=== PATIENT | male | born 1940 | race Caucasian/White ===

== ENCOUNTER 2018-08-20 10:36 | Emergency (ER) | payer MEDICARE, OTHER, SELFPAY ==
[2018-08-20 10:38] VITALS: BP 154/74; PULSE 116; RESP 28; TEMP 36.8; O2SAT 98; BMI 21.9
[2018-08-20 11:04] LABS: Absolute Lymphocyte Count 1.11 X10^3/ul (0.83-4.51); Basophil# 0.05 X10^3/uL; Basophil% 0.5 % (0-1); Eosinophil# 0.45 X10^3/uL; Eosinophils% 4.2 % (0-5); Hematocrit 35.9 % (40-54); Hemoglobin 10.9 g/dl (13.0-16.5); Lymphocyte # 1.11 X10^3/ul (4.0); Lymphocyte % 10.3 % (19-41); Mean Corp Hgb Conc 30.4 g/gl (32-36); Mean Corpuscular Hgb 25.1 pg (27.0-32.0); Mean Corpuscular Volume 82.5 fL (80-94); Mean Platelet Vol. 10.3 fl (6.2-12.0); Monocyte% 10.2 % (0-10); Neutrophil # 8.03 X10^3/uL (2.7-7.7); Neutrophil % 74.5 % (47-70); Platelet Count 312 K/mm3 (150-450); RBC Distribution Width CV 14.8 % (11.6-14.6); Red Blood Count 4.35 M/mm3 (4.6-6.2); White Blood Count 10.8 K/mm3 (4.4-11.0)
[2018-08-20 11:05] LABS: POSITIVE COUNT NO; POSITIVE DIFFERENTIAL NO; POSITIVE MORPHOLOGY NO
[2018-08-20 11:16] LABS: Anion Gap 4 (5-15); BUN 10 mg/dL (7-18); Calcium,Total 8.4 mg/dL (8.5-10.1); Chloride 105 mmol/L (98-107); Creatinine, Serum 0.83 mg/dL (0.70-1.30); EST Glomerular Filtration Rate 95 mL/min (>60); Est Glom Filt Rate - Afr Amer 116 mL/min (>60); Estimated Creatinine Clearance 69.18 ml/min; Glucose 159 mg/dL (74-106); Potassium 3.5 mmol/L (3.5-5.1); Sodium Level 142 mmol/L (136-145)
[2018-08-20 11:38] LABS: Bacteria 0 SEEN /hpf (None Seen); Mucous, Urine 0 SEEN /hpf (<or=2+); Squamous Epithelial Cells - UA 0 SEEN /hpf (0-5); White Blood Cells 0 SEEN /hpf (0-5)
[2018-08-20 11:39] LABS: Color, Urine Red (Yellow); Glucose, Dipstick Normal (Normal); Ketone-Dipstick Negative (Negative); Leukocyte Esterase-Dipstick Negative /ul (Negative); Nitrite-Dipstick Negative (Negative); Occult Blood-Urine 250 /ul (Negative); Protein-Dipstick 500 mg/dl (Negative); Specific Gravity, Urine 1.015 (1.002-1.030); Urine Bilirubin Dipstick Negative (Negative); Urine Clarity Turbid (Clear); Urine Urobilinogen Normal (Normal)
[2018-08-20 11:46] LABS: Red Blood Cells-Urine > 100 SEEN /hpf (0-5)
[2018-08-20] MEDS: Lidocaine Jelly 2% 20 ML Syringe (URO-JET) 20 APPLIC TOPICAL (11:47)
--- NOTE | 2018-08-20 12:21 | ED.DCSUM_ITS ---
- ER Visit Summary Date of Service: 08/20/18 Chief Complaint: Dysuria History of Present Illness: The patient is a 77 M presenting for evaluation secondary to dysuria. Patient reports that over the course of the last week he has had progressively worsening dysuria frequency and has actually started to develop some hematuria. Patient states that today now he is actually having some difficulty with his urinary stream. He reports that he has urgency associated with this. Patient is on Eliquis secondary to a history of atrial fibrillation. He states that that is the only medication that he took this morning and did not take any of his antihypertensives or antiarrhythmics. He denies any history of GI bleeding. He denies any prior history of urinary bleeding. Physical Examination: Thin appearing elderly male no acute distress. Vital signs notable for heart rate of 116 98% on 4 L which is the patient's baseline. No evidence of conjunctival pallor, moist mucous membranes. Heart was irregularly and mildly tachycardic with distant heart sounds. There was mild tachypnea but actually clear lung sounds and no respiratory distress. Abdomen was soft and nontender. No CVA tenderness to percussion. Remainder the physical otherwise unremarkable. Test Results: CBC shows mild anemia at 10.9 with normal platelet count. Chemistry is within normal limits, urinalysis shows greater than 100 red blood cells no white cells or bacteria Emergency Department Course and Treatment: Patient presented for evaluation secondary to dysuria and hematuria. A Cunningham catheter was placed, patient had a moderate amount of return but the return was bloody. I do believe that maintenance of the Cunningham catheter is indicated at this point. Patient does not have evidence of urinary infection causing this, this likely is a side effect of his blood thinner. He has no evidence of acute kidney injury. Patient was somewhat tachycardic in the emergency department with heart rates about 110 but he did not take his beta-blockers or his antiarrhythmics today and I believe that this likely is the cause. I do not believe that further workup is indicated. Patient will be discharged with a leg bag and follow-up with urology . Disposition: Discharge Impression: 1. Hematuria, history of anticoagulation This note was generated with [employer] dictation software. It may contain incorrect words, spelling, and punctuation that were not noted in review of the chart prior to signing ED Disposition - Plan for ED Patient: Disposition: Home or Assisted Living Chief Complaint: Complaint Diagnosis: Hematuria Instructions: ED Hematuria, ED Catheter Care Cunningham Referrals: Geogre Tomlinson MD [STAFF PHYSICIAN] - As soon as possible
[2018-08-20 12:51] VITALS: BP 164/81; PULSE 52; RESP 26; O2SAT 99
--- NOTE | 2018-08-20 12:52 | ED.RN ---
Pt and spouse educated on home care of urinary catheter. Leg bag placed, pt educated on operation of leg bag. Denies need to take home larger catheter bag. Follow up instructions reviewed. Pt and spouse deny questions or further needs. Spouse states she will assist pt in getting dressed. Escorted out to car via wheelchair by this RN.
== END 2018-08-20 13:04 | disposition home or self-care (01) ==
PROVIDERS: Emergency Provider Emergency Medicine; Family Provider Family Medicine; PCP Family Medicine
DX: R31.9 Hematuria, unspecified (principal); I48.91 Unspecified atrial fibrillation; I25.10 Atherosclerotic heart disease of native coronary artery without angina pectoris; J44.9 Chronic obstructive pulmonary disease, unspecified; I10 Essential (primary) hypertension; Z79.02 Long term (current) use of antithrombotics/antiplatelets; Z79.51 Long term (current) use of inhaled steroids; Z79.82 Long term (current) use of aspirin; Z79.899 Other long term (current) drug therapy
CPT/HCPCS: 51702; 80048; 81001; 85025; 99285; A4216

== ENCOUNTER 2018-09-01 08:43 | Day surgery (SDC) | payer MEDICARE, OTHER, SELFPAY ==
[2018-08-24 14:19] VITALS: BP 130/58; PULSE 74; RESP 20; TEMP 36.6; O2SAT 97; BMI 22.1
--- NOTE | 2018-08-24 15:59 | SDCEKG_ITS ---
Test Reason : Blood Pressure : / mmHG Vent. Rate : 106 BPM Atrial Rate : 106 BPM P-R Int : 150 ms QRS Dur : 084 ms QT Int : 354 ms P-R-T Axes : 084 049 057 degrees QTc Int : 470 ms Sinus tachycardia with occasional Premature ventricular complexes and Fusion complexes Low voltage QRS (limb leads) Reconfirmed by FAISAL SHEA, NAVNEET ([id number]), editor in chief CONSUELO DOHERTY ([id number]) on 08/26/2018 3:45:17 PM Referred By: George Tomlinson Confirmed By:NAVNEET MALONE MD
[2018-09-01] VITALS (11 sets, daily range): BP systolic 85–164; BP diastolic 52–79; PULSE 61–100; RESP 16–18; TEMP 36–37.1; O2SAT 66–100; BMI 22.1
--- NOTE | 2018-09-01 10:25 | BLB_PTH ---
PATIENT: KINGSTON ROBBINS LOC: [facility] [place] U#:[id number] AGE/SX: 77/M ROOM: RE09/01/[address]: Dr. George Tomlinson MD : [id number] BED: DIS: 09/02/2018 SPEC #: [id number] RECD: 09/01/18 12:15 STATUS: MIKAYLA REAmber #: [id number] AMELIA: 09/01/18 10:[address]: George Tomlinson DEPT: SURGICAL PATHOLOGY RECD BY: Alissa Han ENTERED: 09/01/18 12:42 SP TYPE: TURB OTHR DR: Dr. Kevin Harris MD Tissues: A - Urethra, NOS B - Urinary bladder, NOS Procedures: Surgery Specimen Level V HEADER OPERATION: Cysto, transurethral resection bladder, [facility] PRE-OP DIAGNOSIS: Gross hematuria, neoplasm of uncertain behavior TISSUE SUBMITTED: A - Prostatic urethra, B - Bladder tumor MICROSCOPIC DIAGNOSIS A. Prostatic urethra, TUR: Urothelial carcinoma in situ. Prostatic tissue, negative for carcinoma. B. Bladder tumor, TUR: High-grade invasive urothelial carcinoma. See cancer summary. HILARIA:jaya 09/02/18 BLADDER CANCER (TUR) SUMMARY: (Including specimen A & B) Procedure - TURBT and prostatic urethra, TUR Histologic type - urothelial (transitional cell) carcinoma Associated epithelial lesions - none identified Histologic grade - urothelial carcinoma (WHO 2004/ISUP) - high grade (3/3) Tumor configuration - papillary, invasive and in situ (flat) Adequacy of material for determining muscularis propria invasion - muscularis propria (detrusor muscle) is present and is involved by the tumor. Lymph-Vascular invasion - not identified Microscopic extent of tumor - tumor invades muscularis propria (detrusor muscle) (specimen B) Urothelial carcinoma in situ involve prostatic urethra in prostatic chip (specimen A). Additional pathologic findings - chronic inflammation. -Calcified fragments consistent with stone. The above summary is in compliance with [employer] (CAP) Cancer Protocols Checklist and [place] Joint Committee on Cancer (AJCC), Staging Manual, 8th Ed. COMMENT Case has been reviewed in consultation with Dr. Bautista who concurs with the above diagnosis. IDC:AM MICROSCOPIC DESCRIPTION Slides are reviewed. GROSS DESCRIPTION A - Received in fixative is one container labeled with the patient's name and designated prostate urethra. The specimen consists of multiple fragments of tamez-brown, indurated tissue that in aggregate measure 2 x 1.5 x 0.3 cm. The entire specimen is submitted in one cassette. B - Received in fixative is one container labeled with the patient's name and designated bladder tumor. The specimen consists of multiple irregular fragments of light tamez soft tissue that in aggregate measure 5 x 3 x 0.3 cm. The specimen is totally submitted in two cassettes. / SJ:rg 09/01/18 TC:0 CPT: 82796 x2
[2018-09-01] MEDS: Cefazolin 2 GM in 0.9% Normal Saline 100 ML IV (10:47)
--- NOTE | 2018-09-01 11:55 | OP.PCM_ITS ---
Report of Operation Date of Procedure: 09/01/18 Pre-Operative Diagnosis: Bladder stone large and bladder cancer large Post-Operative Diagnosis: Same Surgery/Procedure Performed:: Cystoscopy and cystolitholapaxy removal of large bladder stone, transurethral resection of the prostatic and transurethral resection of a large bladder tumors, multiple tumors throughout the bladder Description of Surgical Findings:: 77-year-old male taken back to the operating room after smooth induction of spinal anesthesia he was then placed in dorsal lithotomy position will carefully he had SCDs on for DVT prophylaxis, he received IV antibiotics Ancef 1 g IV preoperatively, the penis and testicles were prepped and draped in usual sterile fashion, first went into the bladder with a noncontinuous flow 24 resectoscope the entire length the urethra is normal identify the sphincter I then identified the verumontanum I then within the prostatic channel there. To be low papillary tumors along the prostatic channel, we then switched over to the resectoscope 26 [place] continuous for flow I then used the resectoscope to resect the prostatic prostate and the prostatic urethra all the way from the bladder neck back down the Tia this is to get the prostate strip out and also the papillary tumors within the prostate so after resecting the prostate this took about 15 minutes and I cauterized this to obtain hemostasis then went back into the bladder and description of the bladder as the left and right ureteral orifice were uninvolved with tumor but he had papillary sessile tumors throughout the bladder multiple locations overlapping sites posterior wall lateral wall left and right dome anterior and posterior pretty much the entire mucosa of the bladder was occupied with papillary tumors started resecting in the lateral wall work my way to the posterior wall and then worked my way to the left lateral wall of the right lateral wall I did get 1 obturator reflex in the right lateral wall that caused a bigger divot in the bladder mucosa but no perforation I then cauterized and the posterior wall and the dome of the bladder extensively 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 and multiple papillary tumors throughout the bladder these were all resected unclear if he had invasive disease I suspect he has T1 disease after resecting multiple tumors throughout the bladder and then cauterizing I switched over to the resectoscope again and then use suction to suction out the area in the dome of the bladder to cauterize the dome he also then had a large stone this was broken up with the pieces and then the stone was removed from the bladder at the at the end of the case all the bladder tumor fragments were removed the prostate channel tumors were removed a separate specimen to the 2 specimen one was the prostatic urethra and prostate and the other one was a bladder tumor after complete resection of the bladder tumor in the prostate urethra urethra good hemostasis was obtained we played placed a 40 cc of mitomycin-C cc into the bladder for post chemo treatment catheter was left in place we will unclamp the catheter about 45 minutes after the instillation. Patient was taken back to PACU in good condition and he will spend the night in the hospital. Type of Anesthesia:: Spinal/Supplemental Drains: 18 fr nicole - Admit VTE Documentation VTE Present on Admission: No VTE Mechan Device Prophylaxis: SCD's
--- NOTE | 2018-09-01 12:43 | NURSING ---
F/C UNCLAMPED TO DRAIN MITOMYCIN AT THIS TIME.
[2018-09-01] MEDS: 0.9% Normal Saline 1,000 ML 75 ML IV (14:05)
[2018-09-01] MEDS: oxyCODONE 5 MG Tablet PO ×3 (14:05→23:35)
--- NOTE | 2018-09-01 15:54 | PCM.PN.BLA ---
Progress Note 77-year-old male with significant COPD and requires oxygen he underwent a transurethral resection of multiple large tumors throughout the bladder. Urine is really clear his doing well clinically after the resection probably will go home tomorrow with a catheter
[2018-09-01] MEDS: Ipratropium/Albuterol Sulfate 3 ML AMPUL.NEB INHALATION (19:05)
[2018-09-01] MEDS: Budesonide Respules 0.5 MG/2 ML AMPUL.NEB. INHALATION (19:05)
--- NOTE | 2018-09-01 19:50 | NURSING ---
In to see pt. Pt c/o sharp lower abd pain. Cunningham bloody with little output. Pt received oxyir @ [address] Tomlinson paged and notified. OK to flush Cunningham with 40cc of sterile water as needed.
[2018-09-01] MEDS: Morphine 2 MG/ML Syringe IV (20:20)
[2018-09-01] MEDS: Pravastatin 20 MG Tablet PO (21:47)
[2018-09-01] MEDS: Ciprofloxacin 500 MG Tablet PO (21:47)
[2018-09-01] MEDS: Docusate Sodium 100 MG Capsule PO (21:47)
[2018-09-01] MEDS: guaiFENesin 600 MG Tablet PO (21:47)
[2018-09-02] MEDS: Morphine 2 MG/ML Syringe IV (01:13)
[2018-09-02] MEDS: 0.9% Normal Saline 1,000 ML 75 ML IV (01:14)
[2018-09-02 03:40] VITALS: BP 111/76; PULSE 99; RESP 20; TEMP 37.8; O2SAT 96
[2018-09-02] MEDS: oxyCODONE 5 MG Tablet PO (03:48)
--- NOTE | 2018-09-02 07:12 | PCM.CONS.GEN ---
Reason for Consult Date of Consultation: 09/02/18 Reason for Consultation: COPD History of Present Illness: The patient is a 77-year-old male, with a history as outlined below, who presented to the hospital on September 01 for a planned cystoscopy with transurethral resection of prostatic and transurethral resection of large bladder tumors. The patient's operative course was uncomplicated. Postoperatively, I was consulted to assist with the management of the patient's chronic, baseline COPD. The patient does report that he has a history of obstructive lung disease, for which he follows with Dr. Gutierrez at [facility]. He has a baseline 2 L/min resting oxygen requirement with 4 L/min to be utilized with exertion. He is already on a triple therapy inhaler regimen with Symbicort and Spiriva. This morning, the patient reports that his breathing quality is at his baseline. Shortness of breath only worsens when he experiences a great deal of pain and/organ anxiety. He denies the presence of chest tightness, wheezing or a productive cough. The patient is currently receiving duo nebs and budesonide, as a therapeutic interchange for his outpatient inhaler regimen. Past Medical History Past Medical History (Chronic Problems): Chronic Problems Multifocal atrial tachycardia (Chronic) COPD (chronic obstructive pulmonary disease) (Chronic) History of AAA (abdominal aortic aneurysm) repair (Chronic) PVD (peripheral vascular disease) (Chronic) CAD (coronary artery disease) (Chronic) Severe anxiety with panic (Chronic) Former smoker (Chronic) Allergies Iodinated Contrast- Oral and IV Dye [Iodinated Contrast Media - IV Dye] Allergy (Verified 08/24/18 13:57) Hives Home Medications: Ambulatory Orders Medication Instructions Recorded Aspirin [Aspirin, Baby] 81 mg PO QHS 01/02/16 Budesonide/Formoterol 160/4.5 2 puff INHALATION BID 01/02/16 [Symbicort 160/4.5 Mcg Inhaler (SP)] Nitroglycerin [Nitrostat] 0.4 mg SUBLINGUAL Q5M PRN 01/02/16 Pravastatin [Pravachol] 20 mg PO QHS 01/02/16 Albuterol Aerosols [Ventolin 2.5 mg INHALATION Q2H PRN PRN #0 01/17/17 Aerosols] vial.neb. Apixaban [Eliquis] 5 mg PO BID 08/20/18 Diltiazem CD [Cardizem CD] 180 mg PO DAILY 08/20/18 Guaifenesin [Mucinex] 600 mg PO BID 08/20/18 Tiotropium [place] [Spiriva] 18 mcg IH DAILY 08/20/18 Oxygen, Home [Home Oxygen] 2 - 4 lpm NASAL DAILY 08/24/18 Surgical History: - - AAA repair Psychiatric History: No pertinent psych hx Smoking Status: Former smoker - *Family History Maternal History Items: No pertinent history Paternal History Items: No pertinent history Sibling History Items: Cancer Review of Systems Constitutional: Denies: Chills, Fever Eyes: Denies: Blurred vision, Double vision HEENT: Denies: Head Aches, Sinus Congestion, Sinus Drainage Cardiovascular: Denies: Chest Pain, Palpitations Respiratory: Denies: Cough, Shortness of breath at rest, Sputum production Gastrointestinal: Reports: Abdominal Pain Genitourinary: Reports: Hematuria Musculoskeletal: Denies: Joint Pain, Joint Tenderness Skin: Denies: Rash, Wounds Neurological: Denies: Numbness, Tingling, Focal weakness Psychiatric: Reports: Anxiety Hematologic/ Lymphatic: Denies: Easy Bruising, Easy Bleeding Objective: The patient's most recent lab work, culture data and imaging studies have all been personally reviewed. - Physical Exam General: Alert, Cooperative, No apparent distress HEENT: Atraumatic, PERRLA, Normocephalic Oral: No Gingival or Mucosal Lesions/ Ulcerations Neck: Supple, No Nodes, Trachea Midline Lungs: No rhonchi, No wheeze, No rales, Diminished Cardiovascular: Regular rate, Regular Rhythm, Normal S1, Normal S2, No murmurs Abdomen: Bowel Sounds Present, Soft, Non Tender Extremities: No clubbing, No cyanosis, No edema Skin: No breakdown Musculoskeletal: No Tenderness to Palpation of Joints or Extremities Lymphatic: No Cervical, Supraclavicular, or Inguinal Adenopathy Neurological: Cranial nerves II-XII grossly intact, Neuro grossly intact Psych/Mental Status: Alert and oriented to time, place, person, mood and affect Vital Signs Temp Pulse Resp BP Pulse Ox 37.8 C H 99 20 H 111/76 96 09/02/18 03:40 09/02/18 03:40 09/02/18 03:40 09/02/18 03:40 09/02/18 03:40 Oxygen Flow Rate (L/min) 4 Oxygen Delivery Method Nasal Cannula Weight: 141 lb 13.628 oz Body Mass Index (BMI) 22.1 Intake and Output for Last 24 Hours 08/31/18 09/01/18 09/02/18 23:59 23:59 23:59 Intake Total 2395 / 2395 1533 / 1533 Output Total 400 / 400 590 / 590 Balance 1994 943 / 943 Assessment/Plan All Active Problems Acute exacerbation of chronic obstructive pulmonary disease (Acute) Paroxysmal atrial fibrillation (Acute) Constipation (Acute) Hypophosphatemia (Acute) Hyperglycemia, drug-induced (Acute) Acute on chronic respiratory failure with hypoxia and hypercapnia (Acute) RECOMMENDATIONS: 1. Continue duo nebs and budesonide is a therapeutic interchange for the patient's Symbicort and Spiriva. 2. Continue 2 L/min of oxygen at rest and 4 L/min with exertion. 3. Follow-up with Dr. Gutierrez at [facility] as scheduled on outpatient basis. IMPRESSIONS: 1. Baseline COPD of unknown severity/chronic hypoxemic respiratory failure. The patient has an established relationship with an outside pulmonary provider. He is currently on a triple therapy inhaler regimen with Symbicort and Spiriva, which has been therapeutically interchange to duo nebs and budesonide, while admitted to the hospital. The patient's breathing quality is baseline. He is maintaining appropriate oxygen saturations on his baseline oxygen requirement. No additional workup is indicated at this time. This note was generated with [employer] dictation software. It may contain incorrect words, spelling, and punctuation that were not noted in checking the note before signing. DISPOSITION: As the patient has chronic, baseline COPD without any acute issues, will sign off. Please call with questions. Code Visit Inpatient E&M: [id number] Init Hosp L2
--- NOTE | 2018-09-02 07:16 | CON.PCM_ITS ---
Reason for Consult Date of Consultation: 09/02/18 Reason for Consultation: COPD History of Present Illness: The patient is a 77-year-old male, with a history as outlined below, who presented to the hospital on September 01 for a planned cystoscopy with transurethral resection of prostatic and transurethral resection of large bladder tumors. The patient's operative course was uncomplicated. Postoperatively, I was consulted to assist with the management of the patient's chronic, baseline COPD. The patient does report that he has a history of obstructive lung disease, for which he follows with Dr. Gutierrez at [facility]. He has a baseline 2 L/min resting oxygen requirement with 4 L/min to be utilized with exertion. He is already on a triple therapy inhaler regimen with Symbicort and Spiriva. This morning, the patient reports that his breathing quality is at his baseline. Shortness of breath only worsens when he experiences a great deal of pain and/organ anxiety. He denies the presence of chest tightness, wheezing or a productive cough. The patient is currently receiving duo nebs and budesonide, as a therapeutic interchange for his outpatient inhaler regimen. Past Medical History Past Medical History (Chronic Problems): Chronic Problems Multifocal atrial tachycardia (Chronic) COPD (chronic obstructive pulmonary disease) (Chronic) History of AAA (abdominal aortic aneurysm) repair (Chronic) PVD (peripheral vascular disease) (Chronic) CAD (coronary artery disease) (Chronic) Severe anxiety with panic (Chronic) Former smoker (Chronic) Allergies Iodinated Contrast- Oral and IV Dye [Iodinated Contrast Media - IV Dye] Allergy (Verified 08/24/18 13:57) Hives Home Medications: Ambulatory Orders Medication Instructions Recorded Aspirin [Aspirin, Baby] 81 mg PO QHS 01/02/16 Budesonide/Formoterol 160/4.5 2 puff INHALATION BID 01/02/16 [Symbicort 160/4.5 Mcg Inhaler (SP)] Nitroglycerin [Nitrostat] 0.4 mg SUBLINGUAL Q5M PRN 01/02/16 Pravastatin [Pravachol] 20 mg PO QHS 01/02/16 Albuterol Aerosols [Ventolin 2.5 mg INHALATION Q2H PRN PRN #0 01/17/17 Aerosols] vial.neb. Apixaban [Eliquis] 5 mg PO BID 08/20/18 Diltiazem CD [Cardizem CD] 180 mg PO DAILY 08/20/18 Guaifenesin [Mucinex] 600 mg PO BID 08/20/18 Tiotropium [place] [Spiriva] 18 mcg IH DAILY 08/20/18 Oxygen, Home [Home Oxygen] 2 - 4 lpm NASAL DAILY 08/24/18 Surgical History: - - AAA repair Psychiatric History: No pertinent psych hx Smoking Status: Former smoker - *Family History Maternal History Items: No pertinent history Paternal History Items: No pertinent history Sibling History Items: Cancer Review of Systems Constitutional: Denies: Chills, Fever Eyes: Denies: Blurred vision, Double vision HEENT: Denies: Head Aches, Sinus Congestion, Sinus Drainage Cardiovascular: Denies: Chest Pain, Palpitations Respiratory: Denies: Cough, Shortness of breath at rest, Sputum production Gastrointestinal: Reports: Abdominal Pain Genitourinary: Reports: Hematuria Musculoskeletal: Denies: Joint Pain, Joint Tenderness Skin: Denies: Rash, Wounds Neurological: Denies: Numbness, Tingling, Focal weakness Psychiatric: Reports: Anxiety Hematologic/ Lymphatic: Denies: Easy Bruising, Easy Bleeding Objective: The patient's most recent lab work, culture data and imaging studies have all been personally reviewed. - Physical Exam General: Alert, Cooperative, No apparent distress HEENT: Atraumatic, PERRLA, Normocephalic Oral: No Gingival or Mucosal Lesions/ Ulcerations Neck: Supple, No Nodes, Trachea Midline Lungs: No rhonchi, No wheeze, No rales, Diminished Cardiovascular: Regular rate, Regular Rhythm, Normal S1, Normal S2, No murmurs Abdomen: Bowel Sounds Present, Soft, Non Tender Extremities: No clubbing, No cyanosis, No edema Skin: No breakdown Musculoskeletal: No Tenderness to Palpation of Joints or Extremities Lymphatic: No Cervical, Supraclavicular, or Inguinal Adenopathy Neurological: Cranial nerves II-XII grossly intact, Neuro grossly intact Psych/Mental Status: Alert and oriented to time, place, person, mood and affect Vital Signs Temp Pulse Resp BP Pulse Ox 37.8 C H 99 20 H 111/76 96 09/02/18 03:40 09/02/18 03:40 09/02/18 03:40 09/02/18 03:40 09/02/18 03:40 Oxygen Flow Rate (L/min) 4 Oxygen Delivery Method Nasal Cannula Weight: 141 lb 13.628 oz Body Mass Index (BMI) 22.1 Intake and Output for Last 24 Hours 08/31/18 09/01/18 09/02/18 23:59 23:59 23:59 Intake Total 2395 / 2395 1533 / 1533 Output Total 400 / 400 590 / 590 Balance 1994 943 / 943 Assessment/Plan All Active Problems Acute exacerbation of chronic obstructive pulmonary disease (Acute) Paroxysmal atrial fibrillation (Acute) Constipation (Acute) Hypophosphatemia (Acute) Hyperglycemia, drug-induced (Acute) Acute on chronic respiratory failure with hypoxia and hypercapnia (Acute) RECOMMENDATIONS: 1. Continue duo nebs and budesonide is a therapeutic interchange for the patient's Symbicort and Spiriva. 2. Continue 2 L/min of oxygen at rest and 4 L/min with exertion. 3. Follow-up with Dr. Gutierrez at [facility] as scheduled on outpatient basis. IMPRESSIONS: 1. Baseline COPD of unknown severity/chronic hypoxemic respiratory failure. The patient has an established relationship with an outside pulmonary provider. He is currently on a triple therapy inhaler regimen with Symbicort and Spiriva, which has been therapeutically interchange to duo nebs and budesonide, while admitted to the hospital. The patient's breathing quality is baseline. He is maintaining appropriate oxygen saturations on his baseline oxygen requirement. No additional workup is indicated at this time. This note was generated with [employer] dictation software. It may contain incorrect words, spelling, and punctuation that were not noted in checking the note before signing. DISPOSITION: As the patient has chronic, baseline COPD without any acute issues, will sign off. Please call with questions. Code Visit Inpatient E&M: [id number] Init Hosp L2
[2018-09-02 07:30] VITALS: PULSE 98; RESP 16; O2SAT 96
[2018-09-02] MEDS: Budesonide Respules 0.5 MG/2 ML AMPUL.NEB. INHALATION (07:30)
[2018-09-02] MEDS: Ipratropium/Albuterol Sulfate 3 ML AMPUL.NEB INHALATION (07:30)
--- NOTE | 2018-09-02 07:40 | PCM.DC.URO ---
Discharge Diet: Light diet - advance as tolerated Discharge Activity: Return to Normal Activity Catheter: Cunningham to leg bag, Cunningham to large bag Drain: [place] Allergies/Adverse Reactions: Allergies Iodinated Contrast- Oral and IV Dye [Iodinated Contrast Media - IV Dye] Allergy (Verified 08/24/18 13:57) Hives Medications to take at Discharge Aspirin [Aspirin, Baby] 81 mg PO QHS 01/02/16 Budesonide/Formoterol 160/4.5 [Symbicort 160/4.5 Mcg Inhaler (SP)] 2 puff INHALATION BID 01/02/16 Nitroglycerin [Nitrostat] 0.4 mg SUBLINGUAL Q5M PRN 01/02/16 Pravastatin [Pravachol] 20 mg PO QHS 01/02/16 Albuterol Aerosols [Ventolin Aerosols] 2.5 mg INHALATION Q2H PRN PRN #0 vial.neb. 01/17/17 Apixaban [Eliquis] 5 mg PO BID 08/20/18 Diltiazem CD [Cardizem CD] 180 mg PO DAILY 08/20/18 Guaifenesin [Mucinex] 600 mg PO BID 08/20/18 Tiotropium [place] [Spiriva] 18 mcg IH DAILY 08/20/18 Oxygen, Home [Home Oxygen] 2 - 4 lpm NASAL DAILY 08/24/18 Ciprofloxacin [Cipro] 500 mg PO BID #10 tab 09/02/18 The following prescriptions were given: Ciprofloxacin [Cipro] 500 mg PO BID #10 tab Primary Care Physician: Kevin Harris MD [Primary Care Provider] - Test Results: Test results from this visit will be discussed in further detail at your follow-up appointment, if applicable. Please Follow Up With: George Tomlinson MD When: please call to make an appointment- next week to remove catheter
[2018-09-02 08:05] VITALS: BP 140/85; PULSE 62; RESP 18; TEMP 37.2; O2SAT 92
[2018-09-02] MEDS: Pantoprazole Sodium 40 MG Tablet PO (08:08)
[2018-09-02] MEDS: Docusate Sodium 100 MG Capsule PO (08:08)
[2018-09-02] MEDS: dilTIAZem CD 180 MG Capsule PO (08:08)
[2018-09-02] MEDS: Ciprofloxacin 500 MG Tablet PO (08:08)
[2018-09-02] MEDS: guaiFENesin 600 MG Tablet PO (08:08)
== END 2018-09-02 10:15 | disposition home or self-care (01) ==
LOC: SDC 08:44 → AC 08:44 → ACINP 12:42 → MS3 12:56
PROVIDERS: Family Provider Family Medicine; PCP Family Medicine; Referring Provider Urology; Visit Provider Urology
PROC: 0TBB8ZZ Excision of Bladder, Via Natural or Artificial Opening Endoscopic (ICD-10-PCS; CPT 52240; principal; 2018-09-01 10:15)
DX: D09.19 Carcinoma in situ of other urinary organs (principal); C67.8 Malignant neoplasm of overlapping sites of bladder; J96.11 Chronic respiratory failure with hypoxia; J44.9 Chronic obstructive pulmonary disease, unspecified; E78.5 Hyperlipidemia, unspecified; I51.9 Heart disease, unspecified; I25.2 Old myocardial infarction; Z87.891 Personal history of nicotine dependence; Z99.81 Dependence on supplemental oxygen; Z79.51 Long term (current) use of inhaled steroids; Z79.82 Long term (current) use of aspirin; Z79.02 Long term (current) use of antithrombotics/antiplatelets; Z79.899 Other long term (current) drug therapy
CPT/HCPCS: 52240; 52287; 52318; 52630; 88305; 88307; 93005; 94640; J7030; J7120; J2405; J3490; J9280

== ENCOUNTER → 2018-09-09 13:38 | Outpatient (CLI) | payer MEDICARE, OTHER, SELFPAY ==
--- NOTE | 2018-09-09 13:44 | CT_ITS ---
STUDY: CT CHEST WITH CONTRAST REASON FOR EXAM: Male, 77 years old. Bladder cancer, removal of tumor only RADIATION DOSAGE (If Supplied By Facility): CTDIvol = ( 13.14 ) mGy, DLP = ( 1462.79 ) mGycm TECHNIQUE: Transaxial 2.5 mm imaging was performed following intravenous administration of 100 ml of Isovue 300 contrast material. Multiplanar coronal and sagittal images were reformatted. Individualized dose optimization techniques were used for this CT. COMPARISON: CT chest 09/20/2013. Chest x-ray 01/12/2017. FINDINGS: Stable bilateral hyperinflation with symmetric moderate to severe emphysema without dominant bulla formation. There are stable clusters of small calcified nodules in the right upper lobe and scattered small calcified parenchymal nodules. The right upper lobe just at the Curtis fissure level contains a noncalcified 0.4 cm nodule image 62 series 2, stable since previous examination seen image 154 series 1003. This is a benign entity and requires no further follow-up. Other pulmonary masses, nodules or focal airspace disease detected. There is no demonstrated pleural abnormality. Normal heart and pericardium. There are calcifications of the coronary arteries. Normal mediastinum. Normal hilar regions. Normal enhanced pulmonary arteries. There is atherosclerotic calcification of the aortic arch with tortuosity and elongation of the aortic arch and descending thoracic aorta. There is a bovine arch as a vascular variant. There are multi-level degenerative changes of the thoracic spine. There is demineralization of osseous structures. There is a stable small hiatal hernia, mild wall prominence of the distal esophagus. There is a calcified hepatic granuloma. The left adrenal gland is low attenuated incompletely imaged measuring 2.[address]/Chest WITH Contrast IMPRESSION: Stable emphysema, remote granulomatous exposure and a noncalcified nodule in the right upper lobe felt to be a benign entity, no further follow-up required. Atherosclerosis and coronary artery disease. Left adrenal low-attenuation likely adenoma, likely unchanged, however incompletely imaged on current examination. Electronically Signed: Kimi Jacques MD at 7:17 EST , Service support ,
--- NOTE | 2018-09-09 13:44 | CT_ITS ---
STUDY: CT ABDOMEN AND PELVIS WITH CONTRAST REASON FOR EXAM: Male, 77 years old. Bladder cancer RADIATION DOSAGE (If Supplied By Facility): CTDIvol = ( 13.14 ) mGy, DLP = ( 1462.79 ) mGycm TECHNIQUE: Transaxial images were obtained from the dome of the diaphragm to the symphysis pubis with oral contrast. 100 ml of Isovue 300 contrast was administered. Sagittal and coronal images were reconstructed. Imaging was obtained in the portal venous and renal excretory phases. Individualized dose optimization techniques were used for this CT. COMPARISON: X-ray chest 09/09/2018 FINDINGS: Body wall soft tissues: No acute process. Osseous structures: No lytic or blastic lesions are apparent. Mild low lumbar scoliosis. Prominent degenerative disc disease between L3 and S1 with mild facet hypertrophy contributing to foraminal narrowing at multiple levels. Inferior chest: Prominent hyperlucency with features of centrilobular emphysema at the lung bases. Correlate smoking history. Lung bases otherwise clear. Normal distal esophagus. Normal heart size without effusion. Coronary calcifications are present. Hepatobiliary: Normal. Pancreas: Moderate atrophy. Spleen: Punctate calcifications consistent with old granulomatous disease. Adrenal glands: Right adrenal gland normal. Enhancing left adrenal nodule with a greatest dimension of approximately 2 cm. This demonstrates washout with low-density central features on the delayed contrast phase of imaging favoring benign lipid rich adrenal adenoma but incompletely characterized. A follow-up noncontrast limited CT abdomen will be appropriate for further characterization of the lipid content of this nodule. Urogenital: Normal bilateral kidneys with symmetric nephrograms. There is a solitary nonobstructing calyceal calculus of the left renal inferior pole with a greatest dimension of 6 mm. Normal collecting systems and ureters. There is mild circumferential thickening of the wall the urinary bladder which is mildly hyperemic and mildly trabeculated. There is induration/edema in the periserosal fat surrounding the extraperitoneal portions of the bladder. There is no discrete visible renal mass. There is no significant prostatomegaly. Normal seminal vesicles. There is no inguinal, perivesical, pelvic floor, or iliac chain lymphadenopathy. Pelvic floor and sidewalls and retroperitoneum: No mass or adenopathy. Vasculature: Aortoiliac fabric graft widely patent. Major branch vessels widely patent. Normal portal venous, mesenteric venous arborization, right iliac veins and IVC. 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 Small bowel and mesentery: No acute process. Large bowel: The appendix is not clearly visible. Mild sigmoid diverticulosis without diverticulitis. Normal rectum. Free fluid or free air: None. CT/Abdomen/Pelvis WITH Contrast IMPRESSION: Edema/induration in the perivesical fat of the extraperitoneal portions of the urinary bladder, associated with circumferential mild thickening and trabeculation of the wall the urinary bladder is mild hyperemia of the wall without discrete focal mass lesion. These features suggest the presence of cystitis which could be associated with radiation therapy if any has been performed. Correlate for any other etiology of cystitis. Nonobstructing retained calyceal calculus of the left renal inferior pole. No other acute abdominopelvic process is evident. Electronically Signed: Darrius Brown, at 20:14 EST Tel , Service support ,
== END ==
PROVIDERS: Family Provider Family Medicine; PCP Family Medicine; Referring Provider Urology; Visit Provider Urology
DX: C67.0 Malignant neoplasm of trigone of bladder (principal); R31.9 Hematuria, unspecified
CPT/HCPCS: 71260; 74177; Q9967

== ENCOUNTER → 2019-08-02 | Outpatient (CLI) | payer MEDICARE, OTHER, SELFPAY ==
[2018-10-13 14:57] VITALS: BMI 21.0
[2019-02-08 15:45] VITALS: BMI 20.3
--- NOTE | 2019-08-02 15:47 | CT_ITS ---
STUDY: CT ABDOMEN AND PELVIS WITH AND WITHOUT CONTRAST REASON FOR EXAM: Male, 78 years old. BLADDER CANCER. REMOVAL AND RADIATION. AAA REPAIR RADIATION DOSAGE (If Supplied By Facility): CTDIvol = ( 10.89 ) mGy, DLP = ( 1102.11 ) mGycm TECHNIQUE: Transaxial images were obtained from the dome of the diaphragm to the symphysis pubis without oral contrast. IV Isovue 300 100 was administered. Sagittal and coronal images were reconstructed. Individualized dose optimization techniques were used for this CT. COMPARISON: September 09, 2018 CT abdomen and pelvis FINDINGS: Emphysematous changes are present at the lung bases. The visualized portions of the heart are within normal limits. Normal liver. Normal gallbladder and extrahepatic biliary system. There are multiple benign calcified granulomata of the spleen. There is diffuse atrophy of the pancreas. There is a left adrenal nodule that was present previously. On noncontrast imaging it has a Hounsfield unit measurement of 3 suggesting it is a benign adrenal adenoma. Additionally it is stable. The right adrenal glands unremarkable. Normal right kidney. There is a nonobstructing calculus seen in association with the lower pole of the left kidney measuring approximately 0.69 x 0.3 cm. This was previously present. No hydronephrosis. No ureteral obstruction. Normal visualized stomach. Normal small intestine. There are multiple colonic diverticula consistent with diverticulosis. The appendix is visualized and appears normal. 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 This is stable. Atherosclerosis noted. Normal inferior vena cava. Normal retroperitoneum. The urinary bladder remains thick-walled. There is now calcific density seen associated with the superior and slightly right lateral bladder wall, for instance refer to coronal image #69. These calcifications encompass a transverse area of approximately 2.9 cm, a anterior posterior dimension of approximately 2.7 cm and cranial caudal dimension of approximately 1.3 cm and appear fixed to the superior bladder wall. Normal abdominal wall. Degenerative spondylosis of the spine is noted with multilevel small marginal osteophytes and there is vacuum disc phenomenon in the lower lumbar spine. CT/CT Abd/Pelvis W/WO Contrast IMPRESSION: Alteration in the appearance of the urinary bladder which I suspect relates to therapy with now noted calcification associated with the wall of the bladder. No evidence of lymphadenopathy or spread of disease. Electronically Signed: Clarita Cespedes MD at 11:26 EDT , Service support ,
[2019-08-02 16:01] LABS: CREATININE FINGERSTICK 0.6 mg/dL (0.70-1.30)
== END | disposition home or self-care (01) ==
LOC: CT 15:45
PROVIDERS: Family Provider Family Medicine; PCP Family Medicine; Referring Provider Urology; Visit Provider Urology
DX: C67.9 Malignant neoplasm of bladder, unspecified (principal)
CPT/HCPCS: 74178; Q9967